=== PATIENT | female | born 1955 | race Caucasian/White ===

== ENCOUNTER 2022-06-11 13:59 | Outpatient (CLI) | payer MEDICARE ==
[2022-06-11 14:54] LABS: #Eosinphils 0.2 10x3/uL (0.0-0.5); #Monocytes 0.5 10x3/uL (0.0-1.1); #Neutrophils 3.1 10x3/uL (1.5-8.4); %Basophils 0.6 % (0.0-2.0); %Eosinophils 3.5 % (0.0-6.0); %Lymphocytes 37.6 % (18.0-47.0); %Monocytes 7.6 % (0.0-10.0); %Neutrophils 50.5 % (40.0-75.0); Hemoglobin 13.5 g/dL (12.0-15.5); Mean Corpuscular Hemoglobin 30.3 pg (27.0-33.0); Mean Platelet Volume 9.2 fl (7.4-10.4); Platelet Count 264 10x3/uL (150-450); RBC Distribution Width 11.9 % (11.5-14.5); Red Blood Cell (RBC) Count 4.46 10x6/uL (3.90-5.03); White Blood Cell (WBC) Count 6.2 10x3/uL (3.5-10.5)
[2022-06-11 15:06] LABS: INR-International Normal Ratio 0.9
[2022-06-11 15:10] LABS: Anion Gap 13 mmol/L (10-20); BUN (Urea Nitrogen) 16 mg/dL (9.8-20.1); Calc. Creatinine Clearance 0 mL/min (70-130); Carbon Dioxide 26 mmol/L (23-31); Chloride 103 mmol/L (98-107); Estimated GFR 76; Glucose 119 mg/dL (80-115); Potassium 4.1 mmol/L (3.5-5.1); Sodium 138 mmol/L (136-145)
== END 2022-06-11 14:00 | disposition home or self-care (01) ==
LOC: LABBT 13:59
PROVIDERS: ATTEND Orthopaedic Surgery
DX: Z01.818 Encounter for other preprocedural examination (principal); M17.11 Unilateral primary osteoarthritis, right knee
CPT/HCPCS: 80048; 85025; 85610; 87081; 93005; 93010

== ENCOUNTER 2022-06-18 07:40 | Observation (INO) | payer MEDICARE ==
[2022-06-14 14:28] VITALS: BMI 36.3
[2022-06-18] MEDS ORDERED: Sodium Chloride 0.9% 100 ML ONE ×2 (08:34→09:05)
[2022-06-18] MEDS ORDERED: Tranexamic Acid 1,000 MG/10 ML VIAL ONE (08:34)
[2022-06-18] MEDS ORDERED: Vancomycin (BATCH) 1.5 GRAM/300 ML BAG ONE (08:34)
[2022-06-18] MEDS ORDERED: Bupivacaine PF 0.5% 30 ML VIAL ONE ×2 (09:02→09:07)
[2022-06-18] MEDS ORDERED: CEFAZOLIN 2 GM VIAL ONE (09:05)
[2022-06-18] MEDS ORDERED: Midazolam HCl 2 mg/2 ml Vial ONE (09:07)
[2022-06-18] MEDS ORDERED: fentaNYL 50 mcg/mL 1 mL Vial ONE ×5 (09:07→16:14)
[2022-06-18] MEDS ORDERED: Ropivacaine 0.2% 550 ML 550 ML NERVE BLCK SCH (10:15)
[2022-06-18] MEDS ORDERED: traMADol HCl 50 MG TAB PO PRN ×2 (10:15)
[2022-06-18] MEDS ORDERED: HYDROcodone/Acetaminophen 10/325 mg Tablet PO PRN (10:15)
[2022-06-18] MEDS ORDERED: Promethazine HCl 25 MG/ML VIAL IM PRN ×3 (10:15→12:50)
[2022-06-18] MEDS ORDERED: Ondansetron PF 4 MG/2 ML Vial IVP PRN ×2 (10:15→11:27)
[2022-06-18] MEDS ORDERED: Zolpidem Tartrate 5 MG TAB PO PRN ×2 (10:15→11:27)
[2022-06-18] MEDS ORDERED: fentaNYL 50 mcg/mL 1 mL Vial SLOW IVP PRN (10:16)
[2022-06-18] MEDS ORDERED: fentaNYL PF 100 MCG/2 ML SYRINGE ONE (11:12)
[2022-06-18] MEDS ORDERED: Lidocaine 1% PF 5 ML VIAL ONE (11:24)
[2022-06-18] MEDS ORDERED: PROPOFOL 200 MG/20 ML VIAL ONE (11:24)
[2022-06-18] MEDS ORDERED: Bupivacaine HCl 0.5%/Epinephrine 1:200,000/PF 30 ml Vial ONE (11:24)
[2022-06-18] MEDS ORDERED: ePHEDrine Sulfate 50 MG/10 ML VIAL ONE (11:24)
[2022-06-18] MEDS ORDERED: Ondansetron PF 4 MG/2 ML Vial ONE (11:24)
[2022-06-18] MEDS ORDERED: Dexamethasone 20 MG/5 ML VIAL ONE (11:24)
[2022-06-18] MEDS ORDERED: diphenhydrAMINE 25 MG CAP PO PRN (11:27)
[2022-06-18] MEDS ORDERED: Acetaminophen 325 MG TAB PO PRN (11:27)
[2022-06-18] MEDS ORDERED: HYDROmorphone 2 MG/ML VIAL SLOW IVP PRN (12:50)
[2022-06-18] MEDS ORDERED: Ondansetron HCl/PF 4 MG/2 ML Vial IVP PRN (12:50)
[2022-06-18] MEDS ORDERED: HYDROmorphone 0.5 MG/0.5 ML SYRINGE ONE (13:30)
[2022-06-18] MEDS: HYDROcodone/Acetaminophen 10/325 mg Tablet PO PRN (18:06)
[2022-06-18] MEDS: Ketorolac Tromethamine 30 MG/ML VIAL IVP SCH ×2 (18:06→18:08)
[2022-06-18] MEDS: CEFAZOLIN 2 GM in Sodium Chloride 0.9% 100 ML IVPB SCH (18:07)
[2022-06-18] MEDS: Sodium Chloride 0.9% 1,000 ML IV SCH ×2 (18:08→21:30)
[2022-06-18] MEDS ORDERED: Venlafaxine HCl XR 75 MG CAP PO SCH (21:00)
[2022-06-18] MEDS ORDERED: Losartan 25 MG TAB PO SCH (21:00)
[2022-06-18] MEDS ORDERED: ALPRAZolam 0.25 MG TAB PO SCH (21:00)
[2022-06-18] MEDS ORDERED: Carvedilol 25 MG TAB PO SCH (21:00)
[2022-06-18] MEDS: Senokot S 8.6-50 MG TAB PO SCH (21:39)
[2022-06-18] MEDS: Aspirin 81 mg Enteric Coated Tablet PO SCH (21:40)
[2022-06-18] MEDS: Ferrous Gluconate 324 MG TAB PO SCH (21:40)
[2022-06-19] MEDS: HYDROcodone/Acetaminophen 10/325 mg Tablet PO PRN ×2 (00:46→12:17)
[2022-06-19] MEDS: Ketorolac Tromethamine 30 MG/ML VIAL IVP SCH ×3 (00:47→11:47)
[2022-06-19] MEDS: CEFAZOLIN 2 GM in Sodium Chloride 0.9% 100 ML IVPB SCH (00:48)
[2022-06-19 06:05] LABS: Hemoglobin 11.9 g/dL (12.0-16.0); Mean Corpuscular Hemoglobin 31.6 pg (27.0-31.0); Mean Corpuscular Volume 92.9 fl (78.0-98.0); Mean Platelet Volume 6.8 fL (7.4-10.4); Platelet Count 221 10x3/uL (130-400); RBC Distribution Width 11.1 % (11.5-14.5); Red Blood Cell (RBC) Count 3.77 mill/uL (4.20-5.40); White Blood Cell (WBC) Count 7.9 10x3/uL (4.8-10.8)
[2022-06-19] MEDS ORDERED: Multivitamin W/ Minerals 1 TAB PO SCH (09:00)
[2022-06-19] MEDS: Sodium Chloride 0.9% 1,000 ML IV SCH (09:11)
[2022-06-19] MEDS: Aspirin 81 mg Enteric Coated Tablet PO SCH (09:12)
[2022-06-19] MEDS: Ferrous Gluconate 324 MG TAB PO SCH (09:12)
[2022-06-19] MEDS: Senokot S 8.6-50 MG TAB PO SCH (09:12)
[2022-06-19 12:52] VITALS: BP 112/74; TEMP 98.4
== END 2022-06-19 12:45 | disposition home or self-care (01) ==
LOC: SDC 07:40 → SJJU 11:28 → SDC 17:00 → SJJU 18:00 → SDC 06-19 07:00 → SJJU 06-19 07:00 → UNDOADMOB 06-19 09:00 → SJJU 06-19 09:00
PROVIDERS: ADMIT Orthopaedic Surgery; ATTEND Orthopaedic Surgery
PROC: 0SRC0J9 Replacement of Right Knee Joint with Synthetic Substitute, Cemented, Open Approach (ICD-10-PCS; principal; 2022-06-18)
DX: M17.11 Unilateral primary osteoarthritis, right knee (principal); I10 Essential (primary) hypertension; E66.9 Obesity, unspecified; Z68.36 Body mass index [BMI] 36.0-36.9, adult; Z86.16 Personal history of COVID-19; Z79.899 Other long term (current) drug therapy; Z88.8 Allergy status to other drugs, medicaments and biological substances
CPT/HCPCS: 20985; 27447; 73560; 85027; 96374; 96375; 96376; 97110 ×2; 97116 ×2; 97530 ×2; A4306; C1713; C1776; G0378 ×2; J3010; J3370; 36415; J1100; J1170; J1885; J2250; J2405; J2704; J2795; J3490; J7050; S0020